=== PATIENT | female | born 1950 | race Caucasian/White ===

== ENCOUNTER → 2016-07-28 | Outpatient (CLI) | payer MEDICARE ==
[2016-07-28 08:54] LABS: Basophils % (A) 1 %; CH 27.8; CHCM 30.8; Eosinophils # (A) 0.3 k/uL (0-0.7); Eosinophils % (A) 3 %; HCT 40.1 % (34.0-46.0); HGB 12.2 gm/dL (11.4-16.0); Hypochromasia Moderate; Luc # (Auto) 0.19; Luc % (Auto) 2; Lymphocytes # (A) 2.9 k/uL (1.0-4.8); Lymphocytes % (A) 36 %; MCH 27.7 pg (25.0-35.0); MCHC 30.5 g/dL (31.0-37.0); MCV 90.8 fL (80.0-100.0); Mean Platelet Volume 7.1; Monocytes # (A) 0.4 k/uL (0-1.0); Monocytes % (A) 4 %; Neutrophils # (A) 4.2 k/uL (1.3-7.7); Neutrophils % (A) 53 %; RBC 4.42 m/uL (3.80-5.40); RDW 15.4 % (11.5-15.5); WBC 7.9 k/uL (3.8-10.6); WBC (Perox) 7.71
[2016-07-28 12:22] LABS: ALT 29 U/L (9-52); AST 29 U/L (14-36); Alkaline Phosphatase 73 U/L (38-126); Anion Gap 10 mmol/L; Blood Urea Nitrogen 22 mg/dL (7-17); Calcium 9.7 mg/dL (8.4-10.2); Carbon Dioxide 29 mmol/L (22-30); Chloride 102 mmol/L (98-107); Cholesterol 204 mg/dL (<200); Glucose 161 mg/dL (74-99); HDL Cholesterol 37 mg/dL (40-60); Non-African American GFR(MDRD) >60 (>60 ml/min/1.73 sqM); Potassium 4.9 mmol/L (3.5-5.1); Sodium 141 mmol/L (137-145); Total Bilirubin 0.7 mg/dL (0.2-1.3); Total Protein 7.5 g/dL (6.3-8.2); Triglycerides 200 mg/dL (<150)
[2016-07-28 13:21] LABS: Hepatitis C Virus IgG Ab Negative (Negative)
[2016-07-28 15:06] LABS: Hepatitis C Virus IgG Index 0.03
== END | disposition home or self-care (01) ==
LOC: LABWHC1 08:15
PROVIDERS: ATTEND Internal Medicine
DX: Z13.9 Encounter for screening, unspecified (principal); E55.9 Vitamin D deficiency, unspecified; E11.9 Type 2 diabetes mellitus without complications; R00.2 Palpitations; E03.9 Hypothyroidism, unspecified
CPT/HCPCS: 36415; 80053; 80061; 82306; 84439; 84443; 84481; 85025; 86803

== ENCOUNTER → 2017-09-16 | Outpatient (CLI) | payer MEDICARE ==
--- NOTE | 2017-09-16 23:14 | MR ---
EXAMINATION TYPE: MR lumbar spine wo con DATE OF EXAM: 09/16/2017 COMPARISON: MRI lumbar spine August 25, 2014. HISTORY: Low back pain, disc degeneration, spondylolisthesis, and spondylosis without myelopathy per order. TECHNIQUE: Multiplanar, multisequence imaging of the lumbar spine is performed without IV contrast. FINDINGS: Survey images shows artifact from bilateral hip arthroplasty on current study. Sagittal nilton ges of the lumbar spine show vertebral body heights to remain satisfactory. There is straightening of lumbar spine with stable grade 1 retrolisthesis of L3 on L4 redemonstrated. Multilevel disc desiccat ion is again seen. There is persistent moderate to advanced disc space narrowing with vacuum disc phe nomenon and mild to moderate anterior spurring L2-L3 and L3-L4 levels. There is persistent mild disc space narrowing with vacuum disc phenomenon L4-L5 level. There is pucx-yk-dirdhcrn disc space narrowi ng with vacuum disc phenomenon L5-S1 level redemonstrated. Small posterior disc herniations are redem onstrated all these levels on sagittal images. The conus medullaris remains normal in position and s ignal ending superior L1 level. Heterogeneous Modic type II endplate changes L2-L3 disc space is rede monstrated. Axial images show the T12-L1 level to remain within normal limits. Axial images at the L1-L2 level show mild broad disc bulge with more prominent left paracentral disc protrusion effacing the anterolateral thecal sac on axial image 33. Bilateral neural foramina are pat ent. Axial images at L2-L3 level demonstrate moderate broad-based posterior disc protrusion effacing the a nterior thecal sac on axial image 26. There is mfcs-gz-dxxynqla bilateral anterior inferior neural fo raminal narrowing. No significant progression from prior MRI. Axial images at L3-L4 level show mild/moderate broad disc bulge effacing anterior thecal sac and mild facet arthropathy bilaterally. There is redemonstration of right paracentral disc extrusion componen t axial image 19 encroaching near central right L4 nerve axial image 18. There is mild to moderate le ft greater than right bilateral anterior inferior neural foraminal narrowing redemonstrated. No signi ficant change from prior. Axial images at L4-L5 level shows mikf-wx-ibvccobc facet degenerative changes bilaterally with left-s ided ligamentum flavum hypertrophy. There is mild broad disc bulge redemonstrated effacing anterior t hecal sac. There is slight effacement of the posterior lateral thecal sac redemonstrated. There is mi ld lateral anterior inferior neural foraminal narrowing again seen. No significant change from prior. Axial images at L5-S1 level show qhcm-gz-sddzuxhr facet degenerative changes bilaterally. There is br oad disc bulge with central disc protrusion component. Spinal canal is preserved. There is moderate r ight-sided neural foraminal narrowing encroaching near exiting right L5 nerve on sagittal images 14 a nd 15 and axial image 8. Left-sided neural foramina is patent. No significant change from prior. Some cortical thinning in both kidneys is felt present. There is persistent 7 mm round T2 hyperintens e lesion posteriorly left kidney axial image 30, upper pole cyst is minimally imaged on axial image 3 8. IMPRESSION: Multilevel degenerative changes in the lumbar spine as detailed above, slightly larger di sc herniation L1-L2 level is noted otherwise no significant interval progression is present from prio r MRI.
== END | disposition home or self-care (01) ==
LOC: RADMRIMAIN 18:23
PROVIDERS: ATTEND Physical Medicine & Rehabilitation
DX: M51.26 Other intervertebral disc displacement, lumbar region (principal); M47.817 Spondylosis without myelopathy or radiculopathy, lumbosacral region
CPT/HCPCS: 72148

== ENCOUNTER → 2017-12-23 | Outpatient (CLI) | payer MEDICARE ==
--- NOTE | 2017-12-24 11:07 | MM ---
Reason for exam: screening (asymptomatic). Last mammogram was performed 2 years ago. History: Patient is postmenopausal. Family history of breast cancer in paternal aunt at age 45 and breast cancer in paternal cousin at age 45. Right US Cyst Aspiration of the right breast, September 23, 2010. Benign US right guided VAD of the right breast, September 23, 2010. Took hormonal contraceptives for 3 years beginning at age 18. Took estrogen for 6 years beginning at age 46. Physical Findings: A clinical breast exam by your physician is recommended on an annual basis and results should be correlated with mammographic findings. MG 3D Screening Mammo W/Cad Bilateral CC and MLO view(s) were taken. Prior study comparison: December 28, 2015, bilateral MG 3d screening mammo w/cad. March 08, 2013, bilateral digital screening mammo w/CAD. The breast tissue is heterogeneously dense. This may lower the sensitivity of mammography. Benign appearing bilateral calcifications. No suspicious abnormality. No significant changes when compared with prior studies. ASSESSMENT: Benign, BI-RAD 2 RECOMMENDATION: Routine screening mammogram of both breasts in 1 year.
== END | disposition home or self-care (01) ==
LOC: RADMAMWWP 08:46
PROVIDERS: ATTEND Internal Medicine
DX: Z12.31 Encounter for screening mammogram for malignant neoplasm of breast (principal)
CPT/HCPCS: 77063; 77067

== ENCOUNTER → 2017-12-23 | Outpatient (CLI) | payer MEDICARE ==
[2017-12-23 10:39] LABS: HCT 39.7 % (34.0-46.0); HGB 12.3 gm/dL (11.4-16.0); Hypochromasia Moderate; MCH 27.9 pg (25.0-35.0); MCHC 31.1 g/dL (31.0-37.0); MCV 89.6 fL (80.0-100.0); Mean Platelet Volume 7.2; Platelet Count 313 k/uL (150-450); RBC 4.42 m/uL (3.80-5.40); RDW 15.2 % (11.5-15.5); WBC 9.2 k/uL (3.8-10.6)
[2017-12-23 10:57] LABS: Albumin 3.9 g/dL (3.5-5.0); Calcium 9.8 mg/dL (8.4-10.2); Potassium 4.8 mmol/L (3.5-5.1); Total Bilirubin 0.5 mg/dL (0.2-1.3); Total Protein 7.1 g/dL (6.3-8.2)
[2017-12-23 11:00] LABS: Appearance,Urine Clear (Clear); Bilirubin,Urine Negative (Negative); Blood,Urine Negative (Negative); Color,Urine Yellow; Glucose,Urine (UA) Negative (Negative); Ketones,Urine Negative (Negative); Leukocyte Esterase,Urine Trace (Negative); Mucus,Urine Occasional /hpf; Nitrite,Urine Negative (Negative); PH, Urine 5.5 (5.0-8.0); Protein,Urine 1+ (Negative); Specific Gravity,Urine 1.018 (1.001-1.035); Squamous Epithelial Cell,Urine 2 /hpf (0-4); Urobilinogen,Urine <2.0 mg/dL (<2.0)
[2017-12-23 11:09] LABS: T4, Free (Free Thyroxine) 1.23 ng/dL (0.78-2.19)
== END ==
LOC: LABWHC1 09:05
PROVIDERS: ATTEND Physician Assistant
DX: Z00.01 Encounter for general adult medical examination with abnormal findings (principal); E11.40 Type 2 diabetes mellitus with diabetic neuropathy, unspecified; E03.9 Hypothyroidism, unspecified; R53.83 Other fatigue
CPT/HCPCS: 36415; 80053; 80061; 81001; 82607; 84439; 84443; 85027

== ENCOUNTER → 2018-12-24 | Outpatient (CLI) | payer MEDICARE ==
[2018-12-24 11:02] LABS: Albumin 4.1 g/dL (3.5-5.0); Potassium 4.5 mmol/L (3.5-5.1); Total Bilirubin 0.4 mg/dL (0.2-1.3); Total Protein 7.5 g/dL (6.3-8.2)
[2018-12-24 11:03] LABS: Basophils # (A) 0.1 k/uL (0-0.2); Basophils % (A) 1 %; Eosinophils # (A) 0.3 k/uL (0-0.7); Eosinophils % (A) 3 %; HGB 12.8 gm/dL (11.4-16.0); Hypochromasia Moderate; Lymphocytes # (A) 1.9 k/uL (1.0-4.8); Lymphocytes % (A) 22 %; MCH 27.8 pg (25.0-35.0); MCHC 31.3 g/dL (31.0-37.0); Mean Platelet Volume 6.6; Monocytes # (A) 0.4 k/uL (0-1.0); Monocytes % (A) 5 %; Neutrophils # (A) 5.6 k/uL (1.3-7.7); Neutrophils % (A) 67 %; Platelet Count 297 k/uL (150-450); RDW 15.1 % (11.5-15.5); WBC 8.4 k/uL (3.8-10.6)
--- NOTE | 2018-12-27 13:38 | MM ---
Reason for exam: screening (asymptomatic). Last mammogram was performed 1 year ago. History: Patient is postmenopausal. Family history of breast cancer in paternal aunt at age 45 and breast cancer in paternal cousin at age 45. Right US Cyst Aspiration of the right breast, September 23, 2010. Benign US right guided VAD of the right breast, September 23, 2010. Took hormonal contraceptives for 3 years beginning at age 18. Took estrogen for 6 years beginning at age 46. Physical Findings: A clinical breast exam by your physician is recommended on an annual basis and results should be correlated with mammographic findings. MG 3D Screening Mammo W/Cad Bilateral CC and MLO view(s) were taken. Prior study comparison: December 23, 2017, bilateral MG 3d screening mammo w/cad. December 28, 2015, bilateral MG 3d screening mammo w/cad. There are scattered fibroglandular densities. Previous mammotome biopsy in the right breast. No significant changes when compared with prior studies. ASSESSMENT: Benign, BI-RAD 2 RECOMMENDATION: Routine screening mammogram of both breasts in 1 year.
== END | disposition home or self-care (01) ==
LOC: RADMAMWWP 08:42
PROVIDERS: ATTEND Internal Medicine
DX: Z12.31 Encounter for screening mammogram for malignant neoplasm of breast (principal); E11.42 Type 2 diabetes mellitus with diabetic polyneuropathy; I10 Essential (primary) hypertension; E55.9 Vitamin D deficiency, unspecified
CPT/HCPCS: 77063; 77067; 80053; 80061; 85025

== ENCOUNTER → 2020-02-20 | Outpatient (CLI) | payer MEDICARE ==
--- NOTE | 2020-02-21 11:37 | MM ---
Reason for exam: screening (asymptomatic). Last mammogram was performed 1 year and 2 months ago. History: Patient is postmenopausal. Family history of breast cancer in paternal aunt at age 45 and breast cancer in paternal cousin at age 45. Right US Cyst Aspiration of the right breast, September 23, 2010. Benign US right guided VAD of the right breast, September 23, 2010. Took hormonal contraceptives for 3 years beginning at age 18. Took estrogen for 6 years beginning at age 46. Physical Findings: A clinical breast exam by your physician is recommended on an annual basis and results should be correlated with mammographic findings. MG 3D Screening Mammo W/Cad Bilateral CC and MLO view(s) were taken. Prior study comparison: December 24, 2018, bilateral MG 3d screening mammo w/cad. December 23, 2017, bilateral MG 3d screening mammo w/cad. The breast tissue is heterogeneously dense. This may lower the sensitivity of mammography. There are benign appearing round, vascular calcifications bilaterally. There is no discrete abnormality. Stable prominent benign axillary lymph nodes. ASSESSMENT: Benign, BI-RAD 2 RECOMMENDATION: Routine screening mammogram of both breasts in 1 year.
== END | disposition home or self-care (01) ==
LOC: RADMAMWWP 10:51
PROVIDERS: ATTEND Internal Medicine
DX: Z12.31 Encounter for screening mammogram for malignant neoplasm of breast (principal)
CPT/HCPCS: 77063; 77067

== ENCOUNTER → 2021-01-08 | Outpatient (CLI) | payer MEDICARE ==
[2021-01-08 15:13] LABS: HCT 39.2 % (37.2-46.3); HGB 11.9 g/dL (12.0-15.0); MCH 27.9 pg (27.0-32.0); MCHC 30.4 g/dL (32.0-37.0); Mean Platelet Volume 11.1 fL (9.5-12.2); Platelet Count 272 X 10*3/uL (140-440); RBC 4.26 X 10*6/uL (4.10-5.20); RDW 15.2 % (11.5-14.5); WBC 8.39 X 10*3/uL (4.50-10.00)
[2021-01-08 15:40] LABS: African American GFR (CKD) 85.1 (60.0-200.0); Albumin/Globulin Ratio 1.55 (1.60-3.17); Anion Gap 11.3 mmol/L (4.00-12.00); BUN/Creat Ratio 27.93 Ratio (12.00-20.00); Blood Urea Nitrogen 22.4 mg/dL (9.0-27.0); Calcium 9.6 mg/dL (8.7-10.3); Chol/HDL Ratio 5.42 Ratio; Globulin 2.6 g/dL (1.6-3.3); HDL Cholesterol 36.5 mg/dL (40.00-60.00); LDL Cholesterol,Calculated 116.9 mg/dL (0.0-131.0); Non-African American GFR(CKD) 73.4 (60.0-200.0); Potassium 4.8 mmol/L (3.5-5.5); T4, Free (Free Thyroxine) 1.55 ng/dL (0.800-1.800); Total Bilirubin 0.4 mg/dL (0.30-1.20); Total Protein 6.5 g/dL (6.2-8.2); VLDL Calculation 44.6 mg/dL (5.00-40.00)
== END | disposition home or self-care (01) ==
LOC: LABWHC1 09:16
PROVIDERS: ATTEND Family Medicine
DX: E11.9 Type 2 diabetes mellitus without complications (principal); E03.9 Hypothyroidism, unspecified
CPT/HCPCS: 36415; 80053; 80061; 84439; 84443; 85027

== ENCOUNTER 2022-01-01 06:18 | Emergency (ER) | payer MEDICARE ==
[2022-01-01 06:38] VITALS: RESP 16
[2022-01-01] MEDS ORDERED: BACITRACIN OINT 1 EACH PACKET TOPICAL ONE (06:51)
--- NOTE | 2022-01-01 07:26 | CT ---
EXAMINATION TYPE: CT brain jerrell lópez DATE OF EXAM: 01/01/2022 COMPARISON: None HISTORY: fall CT DLP: 1458.2 mGycm, Automated exposure control for dose reduction was used. CONTRAST: Patient injected with 0 mL of Isovue 300. CT of the brain is performed utilizing 3 mm thick sections through the posterior fossa and 3 mm thick sections through the remaining calvarium. Study is performed within 24 hours of arrival to the hospital. No abnormal hyperdensity is present to suggest an acute intracranial hemorrhage. No mass lesion is evident. No acute infarcts are evident. Ventricles and sulci are appropriate for the patient age. Hyperostosis frontalis internus, normal variant, is present. Paranasal sinuses and mastoid air cells within the ydswa-fu-mnhm are clear. IMPRESSIONS: 1. No acute intracranial process. CT cervical spine. COMPARISON: None CT of the cervical spine is performed in the axial plane at 2 mm thick sections. Reconstructed image s in the coronal, and sagittal plane are reviewed on the computer. No acute fractures are evident. There is a circumscribed lucency within the C6 vertebral body. There is a kyphosis present at C4-5. There is a grade 1 spondylolisthesis of C4 anteriorly on C5. Ant erior vertebral body spurring is present C4 T7. There is loss of disc height through the cervical spine greatest in the lower cervical spine C5-6 C6- 7 and C7-T1. Vertebral body heights are preserved. No spinal canal stenosis is evident. Left foraminal stenosis from uncovertebral joint hypertrophy and facet hypertrophy is present at C3-4 level. Mild bilateral foraminal narrowing is present C4-5. More severe foraminal stenosis present bi laterally C5-C6 correlate with radicular symptoms. Moderate to severe foraminal stenosis present bila terally C6-7. IMPRESSIONS: 1. No acute fracture is evident. 2. Foraminal stenosis to the mid and lower cervical spine. 3. Degenerative disc changes C4-5 through C6-7. 4. Grade 1 spondylolisthesis of C3 anteriorly on C4.
--- NOTE | 2022-01-01 07:31 | ED ---
Fall HPI - General Chief Complaint: Fall Stated Complaint: Fall Time Seen by Provider: 01/01/22 06:40 Source: patient, RN notes reviewed Mode of arrival: wheelchair Limitations: no limitations - History of Present Illness Initial Comments: 71-year-old female presents emergency Department with chief complaint of trip and fall. Patient was upstairs waiting for her have a heart cath states that she her foot caught the ground causing her fall forward she does have hematoma left periorbital region, nasal bridge laceration. Patient has a small skin tear left forearm patient is able to ambulate denies any neck pain mild headache no dizziness no blurred vision no focal weakness no chest pain or shortness breath. Patient states her tetanus is up-to-date last 5 years - Related Data Home Medications Medication Instructions Recorded Confirmed Gabapentin [Neurontin] 300 mg PO QID 11/09/13 06/25/15 Levothyroxine Sodium [Synthroid] 112 mcg PO QAM 11/09/13 06/25/15 lisinopriL [Zestril] 10 mg PO QAM 11/09/13 06/25/15 metFORMIN HCL [Glucophage] 500 mg PO BID 11/09/13 06/25/15 HYDROcodone/APAP 5-325MG [[place] 1 tab PO Q6HR PRN 06/18/15 06/25/15 5-325] Previous Rx's Medication Instructions Recorded Aspirin 325 mg PO BID #60 tab 06/27/15 Docusate [Colace] 100 mg PO BID #60 capsule 06/27/15 Ferrous Sulfate [Iron (65 MG 325 mg PO TID-W/MEALS tab 06/27/15 Elemental)] HYDROcodone/APAP 7.5-325MG [[place] 1 - 2 each PO Q6HR PRN #90 tab 06/27/15 7.5-325] Allergies Allergy/AdvReac Type Severity Reaction Status Date / Time No Known Allergies Allergy Verified 01/01/22 06:23 Review of Systems ROS Statement: Those systems with pertinent positive or pertinent negative responses have been documented in the HPI. ROS Other: All systems not noted in ROS Statement are negative. Past Medical History Past Medical History: Diabetes Mellitus, Osteoarthritis (OA) Additional Past Medical History / Comment(s): DIVERTICULITIS. HEART MURMUR. MIGRAINES. History of Any Multi-Drug Resistant Organisms: None Reported Past Surgical History: Bowel Resection, Breast Surgery, Joint Replacement, Orthopedic Surgery Additional Past Surgical History / Comment(s): PERMANENT COLOSTOMY. TOTAL LEFT HIP ANTERIOR APPROACH, TOTAL RIGHT HIP Past Anesthesia/Blood Transfusion Reactions: No Reported Reaction Past Psychological History: No Psychological Hx Reported Smoking Status: Never smoker Past Alcohol Use History: Rare Past Drug Use History: None Reported - Past Family History Mother Family Medical History: Cancer Additional Family Medical History / Comment(s): LUNG CA General Exam Limitations: no limitations General appearance: alert, in no apparent distress Head exam: Present: atraumatic, normocephalic, normal inspection Eye exam: Present: normal appearance, PERRL, EOMI, periorbital swelling (Left), periorbital tenderness. Absent: scleral icterus, conjunctival injection ENT exam: Present: normal oropharynx, mucous membranes moist. Absent: normal exam (Superficial duration, laceration nasal bridge) Neck exam: Present: normal inspection, full ROM. Absent: tenderness, meningismus, lymphadenopathy Respiratory exam: Present: normal lung sounds bilaterally. Absent: respiratory distress, wheezes, rales, rhonchi, stridor Cardiovascular Exam: Present: regular rate, normal rhythm, normal heart sounds. Absent: systolic murmur, diastolic murmur, rubs, gallop, clicks Extremities exam: Present: other (Skin tear left forearm, remaining extremity exam within normal limits neurovascular intact full range of motion) Course Vital Signs 01/01/22 01/01/22 06:23 06:33 Temperature 98 F 97.7 F Pulse Rate 62 88 Respiratory 188 H 16 Rate Blood Pressure 180/81 180/76 O2 Sat by Pulse 99 100 Oximetry Medical Decision Making - Medical Decision Making 71-year-old presented emergency from fall. CT is negative for acute abnormality. Patient's wounds are cleaned, bacitracin applied patient discharged in stable condition temperature discussed. Disposition Clinical Impression: Fall, Head contusion Disposition: HOME SELF-CARE Condition: Stable Additional Instructions: Please return to the Emergency Department if symptoms worsen or any other concerns. Is patient prescribed a controlled substance at d/c from ED?: No Referrals: Jean Flynn MD [Primary Care Provider] - 1-2 days Time of Disposition: 07:32
[2022-01-01 08:14] VITALS: BP 151/84; PULSE 62; TEMP 97.6
== END 2022-01-01 08:15 | disposition home or self-care (01) ==
LOC: EC 06:18
DX: S00.93XA Contusion of unspecified part of head, initial encounter (principal); E11.9 Type 2 diabetes mellitus without complications; M19.90 Unspecified osteoarthritis, unspecified site; Z79.899 Other long term (current) drug therapy; Z79.82 Long term (current) use of aspirin; W10.9XXA Fall (on) (from) unspecified stairs and steps, initial encounter
CPT/HCPCS: 70450; 72125; 99284